=== PATIENT | female | born 1975 | race Two or more races ===

== ENCOUNTER → 2025-01-10 | Outpatient (CLI) | payer MEDICAID, SELFPAY ==
--- NOTE | 2025-01-10 13:40 | XR_ITS ---
Examination: Bone densitometry Date and time of exam:January 10, 2025 1357 hours INDICATIONS: 49-year-old premenopausal Technique: Lumbar spine and hip total bone mineralization values of an calculated. Peak reference and age match control results have been displayed. Findings: Lumbar spine total bone mineralization is1.150 gm/cm2. This is 0.9 standard deviations above peak reference. This is 1.7 standard deviations . Above age-matched controls. Hip total bone mineralization is 0.994 gm/cm2 This is 0.2 standard deviations above peak reference. This is 0.7 standard deviations above age-matched controls Impression: There is normal mineralization based on lumbar spine measurements. There is normal mineralization based on hip measurements
== END | disposition home or self-care (01) ==
PROVIDERS: PCP Family Medicine; Referring Provider Family Medicine; Visit Provider Family Medicine
DX: Z13.820 Encounter for screening for osteoporosis (principal)
CPT/HCPCS: 77080